=== PATIENT | female | born 1950 | race Caucasian/White ===

== ENCOUNTER 2021-04-18 10:32 | Inpatient (IN) | payer MEDICARE, SELFPAY ==
[2021-04-18] VITALS (22 sets, daily range): BP systolic 68–134; BP diastolic 25–83; PULSE 69–96; RESP 12–28; TEMP 36.5–36.9; O2SAT 82–100; BMI 32.6
--- NOTE | ~2021-04-18 | CT_ITS ---
EXAMINATION: CT abdomen pelvis wo con EXAM DATE: 04/18/2021 13:34 INDICATION: Abd pain, possible C. difficile. TECHNIQUE: Spiral CT of the abdomen and pelvis was performed without contrast. Axial, coronal and s agittal images of the abdomen and pelvis were reviewed. The dose-length product (DLP) for this exami nation was 1185.87 mGy-cm. The exposure was tailored according to patient size (auto mA exposure con trol), and iterative reconstruction (ASIR) was used as additional dose reduction technique. There is no prior study for comparison. FINDINGS: The liver, spleen, adrenal glands and pancreas are unremarkable. Gallbladder is unremarkab le. No biliary obstruction. There is no nephrolithiasis or hydronephrosis. The uterus is unremark able. The bladder is unremarkable. There is no retroperitoneal or pelvic lymphadenopathy. There is moderate scattered arteriosclerotic disease. The appendix is normal. There is small to moderate-sized gastroesophageal hiatal hernia. There is a scending colonic fluid. There is moderately edematous descending and sigmoid colonic wall, consistent with colitis. Mild sigmoid diverticulosis without adjacent inflammation. No pneumatosis intestinalis . No free intraperitoneal gas. The heart is normal in size. There are no pericardial or pleural ef fusions. The lung bases are unremarkable. There are no osteoblastic or osteolytic lesions identifie d. IMPRESSION: 1. Descending and sigmoid colonic colitis. Diarrhea. 2. Small to moderate-sized hiatal hernia. 3. Mild sigmoid diverticulosis. Reviewed, dictated and finalized at location B. TYPESETTER OPERATOR
--- NOTE | ~2021-04-18 | XR_ITS ---
XR elbow RT min 3V 04/18/2021 12:18 INDICATION: Right elbow pain PROCEDURE: 4 views right elbow COMPARISON: No prior studies for comparison. FINDINGS: There is a curvilinear lucency along the medial epicondyle, suspicious for avulsion fractur e. Lateral views limited for evaluation of joint effusion. The soft tissues appear within normal limi ts. No foreign bodies are identified. IMPRESSION: 1: Abnormal lucency parallel to the surface at the medial humeral epicondyle, suspicious for nondispl aced avulsion fracture. Reviewed, dictated and finalized at location A. COATING MACHINE OPERATOR IMPRESSION: 1: Abnormal lucency parallel to the surface at the medial humeral epicondyle, s uspicious for nondisplaced avulsion fracture.
--- NOTE | ~2021-04-18 | CT_ITS ---
EXAMINATION: CT brain wo con EXAM DATE: 04/18/2021 13:34 INDICATION: fall, syncope TECHNIQUE: Spiral CT of the head was performed without contrast. Axial, coronal and sagittal images were reviewed. The dose-length product (DLP) for this examination was 605.33 mGy-cm. The exposure w as tailored according to patient size, and iterative reconstruction (ASIR) was used as additional dos e reduction technique. There is no prior study for comparison. FINDINGS: There is no acute intraparenchymal hemorrhage. No evidence of intraparenchymal brain mass lesion. No evidence of acute infarction. 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 Please note that initial head CT has limited sensitivity for small or acute infarctions. There is mild periventricular and subcortical hypodensity, nonspecific but probably related to small vessel ischemic disease. Th ere is mild to moderate prominence of the sulci and ventricles related to cerebral atrophy. There i s intracranial carotid arteriosclerosis. There are no extra-axial collections. There is no mass eff ect or midline shift. Patient has had bilateral ocular lens surgery. Soft tissue is unremarkable. The visualized sinuses and mastoid air cells are well aerated. IMPRESSION: 1. 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 2. Chronic age related findings. Reviewed, dictated and finalized at location B. WRIGHT SUPERVISOR
--- NOTE | 2021-04-18 10:56 | ECG_ITS ---
Measurements Intervals [place] Rate: 86 P: 55 MT: 191 QRS: 0 QRSD: 78 T: 53 QT: 388 QTc: 464 Interpretive Statements SINUS RHYTHM ANTEROSEPTAL INFARCT, AGE INDETERMINATE CONSIDER INFERIOR INFARCT, AGE INDETERMINATE BASELINE ARTIFACT- I, II, III, AVR, AVL, AVF, V1-V6 ABNORMAL ECG Electronically Signed On 04-18-2021 15:05:26 SEISMOGRAPH SUPERVISOR by Valentín Blank D.O.
--- NOTE | 2021-04-18 12:00 | ED.GENADULT ---
HPI - General Adult General Chief complaint: Syncope Stated complaint: syncopal Source: patient, EMS and RN notes reviewed Mode of arrival: EMS Limitations: no limitations History of Present Illness HPI narrative: Patient 71 years old white female was sitting at work suddenly felt the urgency to have a bowel movement got up to go to the bathroom, felt severely nauseated, followed by a lot of vomiting and lot of bowel movement of watery stool with offensive odor. Patient found on the floor after leaving the bathroom unresponsive for 2 seconds. Blood pressure on arrival to the emergency room 76/45. Patient had diverticulitis on the 15 of this month and was improved on antibiotic. History of C. difficile 5 years ago. History of diabetes, and anxiety. Patient does not smoke, drinks occasionally, does not take blood thinner, Patient denies any fever, chills, chest pain, shortness of breath, headache, neck pain, back pain. Related Data Allergies Allergy/AdvReac Type Severity Reaction Status Date / Time Sulfa (Sulfonamide Allergy Mild Hives Verified 04/18/21 12:33 Antibiotics) Review of Systems Review of Systems: CONSTITUTIONAL: Denies fever, chills, or sweats. EYES: Denies visual changes, redness, or discharge. ENT: Denies rhinorrhea, congestion, sore throat, or otalgia. CARDIOVASCULAR: Denies chest pain, palpitations, or edema. RESPIRATORY: Denies cough or dyspnea. GASTROINTESTINAL: Denies abdominal pain, nausea, vomiting, or diarrhea. GENITOURINARY: Denies dysuria or hematuria. SKIN: Denies rash or itching. MUSCULOSKELETAL: Denies back pain, joint pain, or myalgia. NEUROLOGIC: Denies headache, numbness, or weakness. PSYCHIATRIC: Denies anxiety or depression. [facility] Past Medical History Medical History (Updated 04/18/21 @ 16:42 by Viridiana Linder MD) Anxiety C. difficile colitis Depression Diabetes mellitus Ganglion cyst of finger of left hand Surgical History Surgical History (Updated 04/18/21 @ 16:09 by Britt Roa APRN) History of section History of open reduction and internal fixation (ORIF) procedure Left hand Social History Social History (Updated 04/18/21 @ 16:13 by Britt Roa APRN) Smoking status: Never smoker Alcohol intake: never Substance use: never Exam Narrative: General appearance: Well-developed, well-nourished, ill looking Skin: Normal color Head: Normocephalic, nontraumatic Eyes: Clear conjunctiva ENT: Oropharynx normal, ears normal, nose normal Neck: Supple, nontender Chest and respiratory: Airway patent, no respiratory distress, no accessory muscle use Heart: Regular rate/rhythm Abdomen: Soft, mild diffuse tenderness, hyperactive bowel sounds Vascular: Normal peripheral pulses, normal capillary refill. Musculoskeletal: Normal range of motion, nontender back, right elbow abrasion , good range of motion Neurologic: Alert and oriented ?3, NET DEVELOPER CONSULTANT is normal as tested, no gross motor deficit Course Course Emergency Course: Improving Vital Signs Vital signs: Vital Signs Temperature 36.5 C 04/18/21 10:31 Pulse Rate 86 04/18/21 10:31 Respiratory Rate 16 04/18/21 10:31 Blood Pressure 76/45 L 04/18/21 10:31 Pulse Oximetry 100 04/18/21 10:31 Temperature 36.6 C 04/18/21 16:14 Pulse Rate 96 04/18/21 16:14 Respiratory Rate 18 04/18/21 16:14 Blood Pressure 125/60 04/18/21 16:14 Pulse Oximetry 99 04/18/21 16:14 Medical Decision Making Differential Diagnosis Differential Diagnosis: Gastroenteritis, C. difficile, hypotension secondary to volume loss, Vital Signs Vital Signs: Vital Signs Temperature 36.5 C 04/18/21 10:31 Pulse Rate 86 0
[2021-04-18] MEDS: ONDANSETRON INJ 4 MG/2 ML VIAL IV PUSH (12:18)
[2021-04-18] MEDS: SODIUM CHLORIDE 0.9% IV 2,000 ML 999 ML IV CONT (12:19)
[2021-04-18 12:32] LABS: Basophils Absolute Auto 0.1 K/mm3 (0.0-0.1); Basophils Percent Auto 0.7 % (0.2-1.2); Eosinophils Absolute Auto 0.1 K/mm3 (0-0.3); Eosinophils Percent Auto 0.9 % (0-4.4); Hematocrit 36.3 % (37.0-47.0); Hemoglobin 11.6 g/dL (12.0-15.0); Immature Granulocyte Absolute 0.11 K/mm3 (0.00-0.031); Immature Granulocyte Percent A 0.7 % (0-0.5); Lymphocytes Absolute Auto 1.53 K/mm3 (0.9-3.2); Lymphocytes Percent Auto 9.8 % (18.3-44.2); Mean Corpuscular Hemoglobin 30.9 pg (26-34); Mean Corpuscular Volume 96.5 fl (80-100); Mean Platelet Volume 8.9 fl (7.4-10.4); Monocytes Absolute Auto 1.3 K/mm3 (0.1-0.6); Neutrophils Absolute Auto 12.4 K/mm3 (1.3-6.7); Neutrophils Percent Auto 79.9 % (45.5-73.1); Platelet Count Result 246 k/mm3 (150-375); Red Blood Count 3.76 M/mm3 (4.2-5.4); Red Cell Distribution Width 13.5 % (11.5-14.5); White Blood Count 15.6 K/mm3 (4.5-10.0)
[2021-04-18 12:41] LABS: Lactic Acid Reflex 3.7 mmol/L (0.7-2.1)
[2021-04-18 12:42] LABS: Alanine Aminotransferase 16 U/L (4-35); Albumin Level 3.9 g/dL (3.5-5.1); Alkaline Phosphatase 52 U/L (38-126); Anion Gap 7 mmol/L (8-16); Aspartate Amino Transferase 33 U/L (14-36); Bilirubin,Total 0.5 mg/dL (0.2-1.3); Blood Urea Nitrogen 33 mg/dL (7-17); Calcium 8.9 mg/dL (8.4-10.2); Carbon Dioxide 22 mmol/L (22-30); Chloride 104 mmol/L (98-107); Estimated CRCL calculation 25 ml/min; Estimated Glomerular Filt Rate 28; Glucose 142 mg/dL (65-110); Lipase 334 U/L (23-300); Potassium 4.9 mmol/L (3.4-5.0); Sodium 133 mmol/L (137-145)
--- NOTE | 2021-04-18 12:49 | PC.NURSE ---
Called lab and spoke to Teri to add on C-Reactive Prot.
[2021-04-18 13:05] LABS: CRP < 0.5 mg/dL (<1.0)
[2021-04-18] MEDS: SODIUM CHLORIDE 0.9% IV 1,000 ML 999 ML IV CONT (13:44)
[2021-04-18 14:05] LABS: Toxigenic C. Diff POSITIVE (NEGATIVE)
[2021-04-18] MEDS: Please add drug allergy info to patient profile. 1 EACH XX (14:22)
[2021-04-18 14:24] LABS: Glucose Point of Care 140 mg/dl (65-105)
[2021-04-18] MEDS: VANCOMYCIN ORAL 125 MG/2.5 ML SYRUP PO ×3 (15:17→23:06)
[2021-04-18 15:29] LABS: Reflex Lactic Acid Yes or No Add Lactic
[2021-04-18] MEDS: SODIUM CHLORIDE 0.9% IV 1,000 ML 125 ML IV CONT ×2 (15:36→23:05)
--- NOTE | 2021-04-18 15:43 | PM.IMHP ---
H&P: HPI History of Present Illness Date/Time: Patient requires inpatient monitoring with expected length of stay to exceed 2 midnights for management of care. 04/18/21 15:43 Chief Complaint: Possible syncope Narrative: Ms. Lo is a 71-year-old female who presented emergency room after having a large emesis and a large amount of diarrhea at work today. Patient states she went to the restroom and vomited and then had a very large diarrheal stool and felt slightly better. Patient states she then left the bathroom and while she was walking she fell onto her right side hitting her right elbow. Patient does not believe she lost consciousness, but her coworkers feel that she may have. Patient denied any lightheadedness, dizziness, syncopal, or near syncopal episodes. Patient denied any chest pain, shortness breast, or palpitations. Patient states she has been on a large amount of antibiotics recently for diverticulitis. Patient states she does have a history of C difficile approximately 5 years ago. Patient denies being in any pain at this time. Upon evaluation in emergency room patient was noted to be hypotensive with a blood pressure 75/35 and IV fluids were starting to infuse. Patient also had an x-ray of her right elbow that did show an avulsion fracture of her right elbow. Review of Systems Review of Systems: A 12 point review of systems was completed patient all pertinent positive and negative per HPI the remainder are unremarkable. [facility] Past Medical History Medical History (Updated 04/18/21 @ 16:19 by Britt Roa APRN) Anxiety C. difficile colitis Depression Diabetes mellitus Ganglion cyst of finger of left hand Surgical History Surgical History (Updated 04/18/21 @ 16:09 by Britt Roa APRN) History of section History of open reduction and internal fixation (ORIF) procedure Left hand Social History Social History (Updated 04/18/21 @ 16:13 by Britt Roa APRN) Smoking status: Never smoker Alcohol intake: never Substance use: never Meds Home Medications and Allergies Allergies Allergy/AdvReac Type Severity Reaction Status Date / Time Sulfa (Sulfonamide Allergy Mild Hives Verified 04/18/21 12:33 Antibiotics) Vital Signs Vital Signs - 24 hr 04/18/21 10:31 04/18/21 10:49 04/18/21 11:01 Temperature 36.5 C Pulse Rate 86 88 85 Respiratory Rate 16 16 16 Blood Pressure 76/45 L 76/45 L 68/36 L Pulse Oximetry 100 04/18/21 11:16 04/18/21 11:30 04/18/21 11:33 Temperature Pulse Rate 85 94 92 Respiratory Rate 20 18 19 Blood Pressure 71/47 L 68/55 L Pulse Oximetry 04/18/21 11:47 04/18/21 12:00 04/18/21 12:08 Temperature Pulse Rate 94 79 76 Respiratory Rate 28 H 14 23 H Blood Pressure 90/43 L 86/25 L Pulse Oximetry 82 L 94 04/18/21 12:16 04/18/21 12:18 04/18/21 12:30 Temperature Pulse Rate 77 81 81 Respiratory Rate 21 H 28 H 20 Blood Pressure 80/32 L 78/47 L Pulse Oximetry 99 98 94 04/18/21 12:31 04/18/21 12:45 04/18/21 12:46 Temperature Pulse Rate 81 88 86 Respiratory Rate 26 H 16 18 Blood Pressure 106/54 L 129/66 Pulse Oximetry 97 100 100 04/18/21 13:00 04/18/21 13:01 04/18/21 13:15 Temperature Pulse Rate 87 86 88 Respiratory Rate 17 14 18 Blood Pressure 114/53 L Pulse Oximetry 99 98 97 04/18/21 13:16 04/18/21 13:33 Temperature Pulse Rate 87 89 Respiratory Rate 19 12 Blood Pressure 123/59 L Pulse Oximetry 95 97 Exam Narrative: Constitutional: Patient is well-nourished in no acute distress. Patient is alert oriented x3 HEENT: Moist mucous membranes. No scleral icterus. No lymphadenopathy. Neck: No carotid bruits noted no JVD noted Lungs: Lung sounds are clear to auscultation bilaterally. No accessory muscle use. No rhonchi, rales, or wheezes noted. Cardiovascular: Apical pulse is regular rate and rhythm. S1-S2 noted, no S3 or S4 noted. No gallops, murmurs, or rubs note
[2021-04-18 16:09] LABS: Lactic Acid 1.1 mmol/L (0.7-2.1)
[2021-04-18 16:15] LABS: Add Urine Microscopic? YES; Appearance Urine Clear (Clear); Bacteria Urine Trace /hpf; Bilirubin Urine Negative (Negative); Blood Urine Negative (Negative); Color Urine Yellow (Yellow); Glucose Urine UA Negative (Negative); Ketones Urine Trace mg/dL (Negative); Leukocyte Esterase Ur 1+ LEU/UL (Negative); Mucus Urine Rare /lpf; Nitrate Urine Negative (Negative); Protein Urine Negative (Negative); Specific Grav Ur 1.012 (1.001-1.035); Squamous Epithelial Cell Urine Rare /hpf (Few); Urobilinogen Urine Negative mg/dL (<2.0); WBC Urine 0-3 /hpf
[2021-04-18 17:01] LABS: Glucose Point of Care 160 mg/dl (65-105)
[2021-04-19 04:43] VITALS: O2SAT 97
[2021-04-19] MEDS: VANCOMYCIN ORAL 125 MG/2.5 ML SYRUP PO ×4 (05:19→23:55)
[2021-04-19 05:50] LABS: Basophils Absolute Auto 0.1 K/mm3 (0.0-0.1); Eosinophils Absolute Auto 0.2 K/mm3 (0-0.3); Eosinophils Percent Auto 1.9 % (0-4.4); Hematocrit 28.7 % (37.0-47.0); Hemoglobin 9.2 g/dL (12.0-15.0); Immature Granulocyte Absolute 0.04 K/mm3 (0.00-0.031); Immature Granulocyte Percent A 0.4 % (0-0.5); Lymphocytes Absolute Auto 1.44 K/mm3 (0.9-3.2); Lymphocytes Percent Auto 15.6 % (18.3-44.2); Mean Corpuscular HGB Conc 32.1 g/dl (32-36); Mean Corpuscular Hemoglobin 30.6 pg (26-34); Mean Corpuscular Volume 95.3 fl (80-100); Mean Platelet Volume 8.5 fl (7.4-10.4); Monocytes Absolute Auto 0.8 K/mm3 (0.1-0.6); Neutrophils Absolute Auto 6.7 K/mm3 (1.3-6.7); Neutrophils Percent Auto 72.1 % (45.5-73.1); Platelet Count Result 199 k/mm3 (150-375); Red Blood Count 3.01 M/mm3 (4.2-5.4); Red Cell Distribution Width 13.9 % (11.5-14.5); White Blood Count 9.3 K/mm3 (4.5-10.0)
[2021-04-19 06:05] LABS: Anion Gap 5 mmol/L (8-16); Blood Urea Nitrogen 24 mg/dL (7-17); Calcium 7.7 mg/dL (8.4-10.2); Carbon Dioxide 21 mmol/L (22-30); Chloride 110 mmol/L (98-107); Estimated CRCL calculation 30 ml/min; Estimated Glomerular Filt Rate 34; Glucose 106 mg/dL (65-110); Potassium 4.5 mmol/L (3.4-5.0); Sodium 136 mmol/L (137-145)
[2021-04-19 07:06] VITALS: BP 144/80; PULSE 79; RESP 18; TEMP 36.7; O2SAT 97
[2021-04-19] MEDS: buPROPion HCL XL (24 HR) 150 MG TABCR PO (09:42)
[2021-04-19] MEDS: CITALOPRAM HYDROBROMIDE 20 MG TABLET 40 MG PO (09:42)
[2021-04-19] MEDS: SODIUM CHLORIDE 0.9% IV 1,000 ML 100 ML IV CONT ×2 (09:44→22:39)
[2021-04-19 12:19] VITALS: BMI 32.6
[2021-04-19 14:00] VITALS: BP 96/77; PULSE 81; RESP 20; TEMP 36.7; O2SAT 96
--- NOTE | 2021-04-19 15:55 | PM.IMPN ---
Progress Note: A&P Assessment and Plan (1) C. difficile colitis: Code(s): A04.72 - Enterocolitis due to Clostridium difficile, not specified as recurrent Status: Acute Assessment and Plan: Continue to hydrate with iv fluids continue oral vancomycin for 10 days in total (2) Hypotension: Qualifiers: Hypotension type: other hypotension type Qualified Code(s): I95.89 - Other hypotension Code(s): I95.9 - Hypotension, unspecified Status: Acute Assessment and Plan: Continue to hydrate (3) Acute dehydration: Code(s): E86.0 - Dehydration Status: Acute Assessment and Plan: Creat is 1.5 improved after hydration (4) Avulsion injury of elbow region: Status: Acute Assessment and Plan: X-ray there is a possible avulsion fracture of the lateral portion of the right humerus. No further treatment is needed. Subjective Date/time seen: 04/19/21 15:55 Interval history: Pt is here with cdiff. BP is slightly low. Pt still having watery stools. Patient states she has been on a large amount of antibiotics recently for diverticulitis. Patient states she does have a history of C difficile approximately 5 years ago. Review of Systems Review of Systems: All systems reviewed & are unremarkable except as noted in HPI and below Exam Narrative: Constitutional: Looks tired and dry Lungs: Lung sounds are clear to auscultation bilaterally. Cardiovascular: S1-S2 noted, no S3 or S4 noted. No gallops, murmurs, or rubs noted. Abdomen: Soft, round, and nontender. No palpable masses. Extremities: No edema. Nontender. Skin: Patient has a skin tear to the left lateral elbow Neurological: No focal neurological deficits. Cranial nerves II-XII grossly intact. Psychiatric: Cooperative, appropriate mood, and affect Objective Data Vital Signs Vital Signs: Vital Signs - 24 hr 04/18/21 16:14 04/18/21 23:23 04/19/21 04:43 Temperature 36.6 C 36.9 C Pulse Rate 96 69 Respiratory Rate 18 17 Blood Pressure 125/60 134/83 Pulse Oximetry 99 98 97 04/19/21 07:06 04/19/21 14:00 Temperature 36.7 C 36.7 C Pulse Rate 79 81 Respiratory Rate 18 20 Blood Pressure 144/80 H 96/77 L Pulse Oximetry 97 96 Intake/Output Intake/Output: Intake & Output 02/26/22 02/27/22 02/28/22 03/01/22 23:59 23:59 23:59 23:59 Intake Total 4550 2080 Output Total 300 600 Balance 4250 1480 Meds/Results Medications: Active Medications Generic Name Dose Route Start Last Admin Trade Name Freq PRN Reason Stop Dose Admin Bupropion HCl 150 mg 04/19/21 09:00 04/19/21 09:42 Bupropion Hcl Xl (24 Hr) 150 Mg Tabcr PO 150 mg DAILY FRANCO Administration Citalopram Hydrobromide 40 mg 04/19/21 09:00 04/19/21 09:42 Citalopram Hydrobromide 20 Mg Tablet PO 40 mg DAILY FRANCO Administration Heparin Sodium (Porcine) 5,000 units 04/18/21 21:00 04/19/21 09:48 Heparin Sodium 5,000 Units/Ml Vial SUB-Q Not Given Q12HR FRANCO Sodium Chloride 1,000 mls @ 100 mls/hr 04/18/21 15:00 04/19/21 09:44 Normal Saline Iv IV CONT 100 mls/hr .Q10H FRANCO Administration Ondansetron HCl 4 mg 04/18/21 15:00 Ondansetron Inj 4 Mg/2 Ml Vial IV PUSH Q4H PRN Nausea Vancomycin HCl 125 mg 04/18/21 18:00 04/19/21 12:53 Vancomycin Oral 125 Mg/2.5 Ml Syrup PO 04/28/21 17:59 125 mg Q6HR FRANCO Administration Radiology Results: ITS Impressions Elbow X-Ray 04/18/21 12:19 IMPRESSION: 1: Abnormal lucency parallel to the surface at the medial humeral epicondyle, suspicious for nondisplaced avulsion fracture. Head CT 04/18/21 13:35 IMPRESSION: 1. 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 2. Chronic age related findings. Abdomen/Pelvis CT 04/18/21 13:38 IMPRESSION: 1. Descending and sigmoid colonic colitis. Diarrhea. 2. Small to moderate-sized hiatal hernia. 3. Mild sigmoid diverticulosis. Labs Labs: Labor
[2021-04-19 19:17] VITALS: PULSE 79; O2SAT 96
[2021-04-19 21:57] VITALS: BP 117/57; PULSE 74; RESP 18; TEMP 36.5; O2SAT 97
[2021-04-19] MEDS: SODIUM CHLORIDE 0.9% IV 1,000 ML 125 ML IV CONT (23:55)
[2021-04-20] MEDS: VANCOMYCIN ORAL 125 MG/2.5 ML SYRUP PO ×2 (05:45→12:57)
[2021-04-20 05:46] VITALS: BP 128/65; PULSE 89; RESP 18; TEMP 36.6; O2SAT 96
[2021-04-20] MEDS: buPROPion HCL XL (24 HR) 150 MG TABCR PO (09:11)
[2021-04-20] MEDS: CITALOPRAM HYDROBROMIDE 20 MG TABLET 40 MG PO (09:11)
[2021-04-20] MEDS: SODIUM CHLORIDE 0.9% IV 1,000 ML 125 ML IV CONT (09:18)
--- NOTE | 2021-04-20 11:54 | PM.DS ---
DS: Admitting Diagnosis Discharge Date 04/20/2021 Admitting Diagnosis Possible syncope DS: Discharge Diagnosis Discharge Diagnosis (1) C. difficile colitis: Code(s): A04.72 - Enterocolitis due to Clostridium difficile, not specified as recurrent Status: Acute Assessment and Plan: Pt was hydrated with iv fluids, pt started on oral vancomycin for 10 days in total (2) Hypotension: Qualifiers: Hypotension type: other hypotension type Qualified Code(s): I95.89 - Other hypotension Code(s): I95.9 - Hypotension, unspecified Status: Resolved Assessment and Plan: Pt hydrated with fluids (3) Acute dehydration: Code(s): E86.0 - Dehydration Status: Acute Assessment and Plan: Creat is 1.5 improved after hydration (4) Avulsion injury of elbow region: Status: Acute Assessment and Plan: X-ray there is a possible avulsion fracture of the lateral portion of the right humerus. No further treatment is needed. DS: Summary Hospital Course Hospital Course: Pt is here with cdiff. Pt was hydrated with iv fluids started on oral vancomycin, pt feels better stable for discharge today. Patient states she has been on a large amount of antibiotics recently for diverticulitis. Patient states she does have a history of C difficile approximately 5 years ago. Time Spent with Patient Time attestation: Total time spent providing and/or coordinating discharge services:40 minutes on day of discharge Exam Narrative: Constitutional: Looks tired and dry Lungs: Lung sounds are clear to auscultation bilaterally. Cardiovascular: S1-S2 noted, no S3 or S4 noted. No gallops, murmurs, or rubs noted. Abdomen: Soft, round, and nontender. No palpable masses. Extremities: No edema. Nontender. Skin: Patient has a skin tear to the left lateral elbow Neurological: No focal neurological deficits. Cranial nerves II-XII grossly intact. Psychiatric: Cooperative, appropriate mood, and affect DS: Data Data Completed and Pending Labs on day of discharge: Preliminary micro results at discharge 04/18/21 12:48 Blood Culture - Preliminary Blood 04/18/21 12:48 Blood Culture - Preliminary Blood Discharge Plan Discharge Attending physician on discharge: Kiley Stanley Discharging Clinician: Kiley Stanley Anticipated Discharge Date/Time: 04/20/21 11:48 Patient Disposition: Home, Self-Care Activity: as tolerated Diet: regular Discharge Instructions: Pt can return to work on Tuesday 04/25 NEEDS SICK NOTE FROM 04/18- 04/24 Patient Instructions: Antibiotic Form Stand Alone Forms: General Discharge Information Follow-up/Referrals: HERO ,JENNIFER Hdz MD [Primary Care Provider] - Discharge Medications: New vancomycin 125 mg capsule 125 mg PO Q6HR Qty: 32 RF: 0 Continued citalopram 20 mg tablet 40 mg PO DAILY RF: 0 metformin 1,000 mg tablet 500 mg PO BID RF: 0 bupropion HCl 150 mg tablet extended release 24 hr 150 mg PO DAILY RF: 0 Date of admission: 04/18/21 15:00 Primary Care Provider: HERO JENNIFER Admitting Provider: Tawanda Hanna Attending physician on admission: Tawanda Hanna Condition: Stable
[2021-04-20 11:56] VITALS: O2SAT 96
== END 2021-04-20 14:25 | disposition home or self-care (01) | DRG 372 ==
LOC: ANHED 15:00 → ANH3MEDSUR 04-19 06:24
PROVIDERS: Admitting Provider Internal Medicine; Emergency Provider Emergency Medicine; PCP Internal Medicine; Visit Provider Family Medicine
DX: A04.72 Enterocolitis due to Clostridium difficile, not specified as recurrent (principal); S42.401A Unspecified fracture of lower end of right humerus, initial encounter for closed fracture; F41.9 Anxiety disorder, unspecified; F32.9 Major depressive disorder, single episode, unspecified; E11.9 Type 2 diabetes mellitus without complications; Z88.2 Allergy status to sulfonamides; E86.0 Dehydration; I95.89 Other hypotension; R55 Syncope and collapse
CPT/HCPCS: 36415; 51701; 70450; 73080; 74176; 80048; 80053; 81001; 82948; 83605; 83690; 85025; 86140; 87040; 87045; 87427; 87493; 93005; 96361; 96374; 99285; A4565; A9270; J0131; J1644; J2405; J7030